=== PATIENT | male | born 1975 | race Two or more races ===

== ENCOUNTER 2025-02-05 07:12 | Inpatient (IN) | payer MEDICAID ==
--- NOTE | 2025-01-30 15:27 | ELECTROCARDIOGRAPH REPORT ---
[facility] Test Date: 2025-01-30 Test Time: 15:26:10 Pat Name: JULIANO MCCOY Department: PRE/OP CARDIOLOGY Patient ID: [id number] Room: Gender: M Branch Office Administrator: LULY : 1975 Requested By: CHARLENE HARTMAN Order Number: [id number] Reading MD: Dr. ISRRAEL Henriquez Measurements Intervals [place] Rate: 74 P: 64 ID: [id number] QRS: -14 QRSD: 99 T: -4 QT: 399 QTc: 443 Interpretive Statements Sinus rhythm Borderline short ID interval Borderline T abnormalities, inferior leads Borderline ST elevation, lateral leads Electronically Signed On 02-01-2025 20:18:[address] ISRRAEL Henriquez Please click the below link to view image of tracing.
[2025-01-30 16:24] LABS: MEAN PLATELET VOLUME 8.4 FL (7.4-10.4); PRE OP HEMATOCRIT 45.7 % (42.0-52.0); PRE OP HEMOGLOBIN 15.0 g/dL (14.0-17.9); PRE OP PLATELET COUNT 308 X10'3 (140-440); PRE OP WHITE BLOOD COUNT 8.7 10'3 (4.8-10.8); RED CELL DISTRIBUTION WIDTH 15.6 % (11.5-14.5)
[2025-01-30 16:34] LABS: CREATININE 1.08 MG/DL (0.60-1.10); PRE OP ALT 28 U/L (30-65); PRE OP ANION GAP 8 (8-16); PRE OP AST 18 U/L (10-37); PRE OP BILIRUB, TOTAL 0.5 MG/DL (0.0-1.0); PRE OP GLUCOSE 94 MG/DL (70-104); PRE OP POTASSIUM 4.1 MMOL/L (3.4-5.1); PRE OP SODIUM 140 MMOL/L (135-145); TOTAL CARBON DIOXIDE 26.0 MMOL/L (24-32); eGFR 72 ML/MIN
[2025-02-05] VITALS (21 sets, daily range): BP systolic 94–148; BP diastolic 61–93; PULSE 72–100; RESP 13–23; TEMP 97.1–98.6; O2SAT 91–99
[~2025-02-05] VITALS: Ht 162.6 cm; Wt 86.6 kg
[~2025-02-05 07:12] MED LIST: BACL20TA7 PO; BUPIVAcaine/PF 2.5mg/ml (0.25%) 10ml vial ONE; CELE-193 PO; METF-1203 PO; OMEP20CA16 PO; PCA WASTE DOCUMENTATION 1 MG ML MC SCH; bisacodyl 10mg suppository rectal RC PRN; magnesium hydroxide 30ml (MOM) UD suspension PO PRN; ondansetron/PF 4mg/2ml inj IV PRN
[2025-02-05] MEDS ORDERED: vancomycin/NS 1 GM ADD-VANTAGE 250 ML IV ONE (07:30)
[2025-02-05] MEDS: VANCOMYCIN/WATER FOR INJ (PEG) 1.5GM/300 ML IVPB IV ONE (07:55)
[2025-02-05] MEDS: ringers solution, lacted 1,000 ML IV SCH ×2 (07:55→11:50)
[2025-02-05] MEDS: ceFAZolin 2gm/dext,iso 50mL 50 ML IV ONE (07:55)
[2025-02-05] MEDS ORDERED: MIDAZolam 1 MG/ML 5ML VIAL ONE ×2 (08:06→10:01)
[2025-02-05] MEDS ORDERED: fentaNYL/PF 50MCG/1 ML 2ML syringe ONE (08:06)
[2025-02-05] MEDS ORDERED: propofol inj 20 ML IV ONE ×2 (11:24)
[2025-02-05] MEDS ORDERED: LIDOcaine 1%/PF 5ML 10 MG/ML VIAL ONE (11:24)
[2025-02-05] MEDS ORDERED: tranexamic acid 100mg/ml inj. ONE (11:32)
[2025-02-05] MEDS ORDERED: albumin (Human) 5% 250ml 250 ML IV ONE ×2 (11:39)
--- NOTE | 2025-02-05 11:49 | ANESTHESIA RECORDS ---
Nerve Block Providers to CC ~ Diagnosis: Nerve Block requested by: CHARLENE HARTMAN MD Neuraxial/Peripheral Nerve Block requested for Post-operative analgesia by Physician above DIAGNOSIS: Post-operative pain. (Body Area) Shoulder: [ ] Arm: [ ] Hand: [ ] Hip: [ ] Knee: [ ] Ankle: [ ] Foot: [ ] Leg: [ Right ] Abdomen: [ ] Other: [ ] Post-operative pain expected to be/is inadequately managed by oral or IV medicines. Regional anesthetic expected to facilitate rehabilitation and/or discharge from facility. Other:[ ] Procedure Performed: Femoral / Saphenous: Right Time out Done?: Yes Time of Time out: 12:05 Procedure Details: PROCEDURE DETAILS: Risks, benefits and alternatives explained Informed consent obtained, and patient wishes to proceed Conscious sedation with indicated monitors Patient positioned, pertinent anatomy defined, sterile technique used Needle used: [ ] 3 1/8 inch Stimuplex Ultra 22ga [x ] 4 inch Stimuplex Ultra 20ga [ ] 6 inch Stimuplex Ultra 20ga [ ] 6 inch, Quikbloc over the needle catheter set 20ga [ ] 4 inch Quikbloc over the needle catheter set 20ga [ ]Other: [ ] Loss of twitch @ [ 0.4 ]mA [x ] Single Injection [ ] Catheter Ultrasound Guidance Used: [x ] Yes [ ] No Attempts:[ once ] Medicines injected: [x ]Clonidine Amt:[ 70 mcgs ] [x ]Dexamethasone Amt:[____3 mgs ] [x ]Ropivacaine Amt:[____0.5% 30 cc ] [ ]Bupivacaine Amt:[ ] [ ]Lidocaine Amt:[ ] [ ]Exparel 1.33%:[ ] [ ]Epinephrine Amt[ ] [ ]Other: [ ] Intermittent aspiration during local anesthetic administration No symptoms of intraneural or intravenous injection Patient tolerated procedure well Comments Right Femoral nerve block. Pt supine. Easy visualization of the Femoral nerve and Femoral vessels with ultrasound probe below the groin. Needle entered from lateral approach. 1% xylocaine local anesthetic. Patellar twitch noted Meaningful conversation t throughout. No Pain or discomfort during injection MARGOTH PATE MD Feb 05, 2025 11:49
[2025-02-05] MEDS ORDERED: meperidine/PF 25mg/ml syringe IV PRN ×3 (11:50)
[2025-02-05] MEDS ORDERED: ondansetron/PF 4mg/2ml inj IV PRN (11:50)
[2025-02-05] MEDS ORDERED: labetalol 20mg/4ml (5mg/ml) syringe IV PRN (11:50)
[2025-02-05] MEDS ORDERED: morphine 4 MG/ML inj SYRINge IV PRN (11:50)
[2025-02-05] MEDS ORDERED: enalaprilat 1.25mg/ml 2ml vial IV PRN (11:50)
[2025-02-05 12:51] LABS: ISTAT ANION GAP 11.0 (8-12); ISTAT BUN 19.0 mg/dL (7-18); ISTAT CL 107.0 mmol/L (99-107); ISTAT CREATININE 0.9 mg/dL (0.8-1.3); ISTAT GLUCOSE 144.0 mg/dL (70-104); ISTAT HGB 10.9 g/dl (14.0-17.9); ISTAT Hct 32.0 %PCV (42-52); ISTAT IONIZED CALCIUM 1.26 mmol/L (1.03-1.32); ISTAT K 4.3 mmol/L (3.5-5.1); ISTAT NA 140.0 mmol/L (135-145); ISTAT TOTAL CO2 22.0 mmol/L (24-32); ISTAT eGFR 89.0 ML/MIN; POC BUN/CREATININE RATIO 21.1 (5.4-32.0)
--- NOTE | 2025-02-05 12:58 | OPERATIVE REPORT ---
Operative Report Operative Report OPERATIVE REPORT [facility] [address] [place] [address] Date of service: February 05, 2025 PREOPERATIVE DIAGNOSIS M17.11-715.16 Unilateral primary osteoarthritis, right knee M21.10-736.89 Varus leg deformity, acquired POSTOPERATIVE DIAGNOSIS M17.11-715.16 Unilateral primary osteoarthritis, right knee M21.10-736.89 Varus leg deformity, acquired Operation Performed 24760 Osteotomy, Femur, Shaft/Supracondylar; w/ Fixation with this modifier: [place] [address] Removal, Implant; Deep (right hip) with this [place]: [place] [address] Removal, Implant; Deep (right knee) with this modifier: RT Procedure: Corrective osteotomy, right distal femur with application of intramedullary nail and lateral plate. Removal of internal fixation hardware right knee. Removal of internal fixation hardware right hip. Surgeon: Dr. Artem Hamilton Thermal Spray Operator: Meagan marlow PA-C Anesthesiologist: Dr. 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 He also has knee arthritis. Corrective osteotomy is necessary to obtain better leg balancing in order to successfully accomplish a knee replacement at a later date. Findings: There was indeed a femoral malunion as described above. The previous intramedullary nail was quite difficult to remove. It had proximal and distal interlocking screws and was a very old system. We were ultimately able to remove without difficulty or complication. Implants: A [employer] Tri Gen nail was utilized with proximal and distal interlocking screws and a six hole 4.5 mm locking straight plate was utilized with five screws. Estimated Blood Loss: 500 mL Complications: None Procedure: The risks, benefits, expected results, and possible complications of the planned procedure had been explained to the patient and informed consent obtained. The patient was taken to the operating room where a spinal anesthetic was administered. The right hip and leg was prepped and draped in the usual sterile fashion with the patient in the supine position on the operating table. a [place] fracture table was utilized. A timeout was taken prior to surgery confirming patient identification, operative side operative site, planned procedure, administration of pre-operative antibiotics, site marking, recognition of allergies, and confirming presence of all necessary implants and instruments. A lateral approach was performed to the distal interlocking screws. The initial screws removed without difficulty however the 2nd one was quite difficult as it was overgrown with bone and the nail had settled and shifted position so that the screw was essentially cold-welded to the anterior of the locking screw hole through the nail. We did ultimately get it out without breakage. It was left partially in the nail once we were able to loosen it. A proximal approach was then made and the proximal locking screws removed without difficulty. The approach through the buttock to the top of the nail was similarly quite difficult and it took quite a bit of time to identify the top of the nail which was buried medial to the greater trochanter. We did ultimately expose it obtained an appropriate screwdriver and removed the locking cap. The nail extraction tool was then applied to the top of the nail and once it was solidly into the nail with threads getting excellent block machine operator, the distal interlocking screw was removed the rest of the way. After this the nail was extracted without difficulty. A lateral approach was made at the level of the old fracture and radiographic imaging utilized to help guide osteotomy cuts. We made one cut perpendicular to the distal segment at the level of the fracture and a 2nd cut perpendicular to the proximal segment at the same level. This set us up for a closing wedge osteotomy to correct the alignment. Once this was accomplished we placed a guide pin for the new nail down the femoral shaft and placed the new nail down to the level of the osteotomy. Measures were taken off of the old nail for diameter and length. The osteotomy was then completed and a new entrance point placed into the distal segment with appropriate direction of the nail into the distal metaphysis. The distal segment was translated medially and aligned properly and then the nail driven into the distal segment. Single distal interlocking and proximal interlocking screws were applied and the nail insertion device removed. A short five hole straight plate was placed laterally after contouring the bone by removing the excess callus. This was applied to help with rotational alignment and ensure that we did not have repeat varus or valgus deformity at the fracture. Portions of the bone wedge were crushed with a rongeur and packed in around the osteotomy as bone graft. The wounds were irrigated thoroughly with normal saline and then closed in layers with 1 Stratafix suture for deep tissue, 0. Stratafix suture for healy bcutaneous tissue, and 4-0 strata fix for skin. Sterile dressings were applied, and the patient was returned to the recovery room in satisfactory condition. Electronically Signed by: Artem Hamilton MD Doctor, Orthopedic Surgery Signed on: 02/05/2025 12:57 PM ARTEM HAMILTON MD Feb 05, 2025 12:58
[2025-02-05 13:26] LABS: MEAN PLATELET VOLUME 8.3 FL (7.4-10.4); RED CELL DISTRIBUTION WIDTH 15.2 % (11.5-14.5)
--- NOTE | 2025-02-05 13:26 | RADIOLOGY REPORT ---
CLINICAL INDICATION: post-op TECHNIQUE: 2 DI KNEE LIMITED (AP/LAT) Comparison: None FINDINGS/IMPRESSION: : There is intramedullary medullary wilfredo and screw fixation of distal femur fracture. Small volume gas of the right hip and distal thigh.
[2025-02-05] MEDS: potassium cl 20mEq in 1/2 NS 1,000 ML IV SCH (15:00)
[2025-02-05] MEDS: ceFAZolin/D5W- 1GM premix 50 ML IV SCH (15:38)
[2025-02-05] MEDS: vancomycin/NS 1 GM ADD-VANTAGE 250 ML IV SCH (16:49)
[2025-02-06 02:00] VITALS: BP 112/70; PULSE 80; RESP 16; TEMP 97.8; O2SAT 97
[2025-02-06] MEDS: oxyCODONE IR 5mg (immed. release) tablet PO PRN (04:37)
[2025-02-06 06:00] VITALS: BP 114/68; PULSE 79; RESP 18; TEMP 98; O2SAT 96
[2025-02-06 06:44] LABS: MEAN PLATELET VOLUME 8.6 FL (7.4-10.4); RED CELL DISTRIBUTION WIDTH 14.8 % (11.5-14.5)
[2025-02-06 07:00] LABS: TOTAL CARBON DIOXIDE 25.0 MMOL/L (24-32)
--- NOTE | 2025-02-06 08:06 | DISCHARGE SUMMARY ---
Discharge Summary Ortho [facility] ~ Discharge Summary *Problems/Diagnosis: (1) Varus deformity of knee Status: Chronic Admission Diagnosis: s/p Right Femoral Realignment Osteotomy Discharge Diagnosis\Comment: see above Operations\Procedures see above Consultants: none Complications: none Condition on DC: Stable Discharge Summary: s/p femoral realignment osteotomy, right. On the date of admission patient underwent surgery at [facility] without complications. Overnight admission was uneventful. Plan to discharge home today so long as patient clears physical therapy. Follow up as scheduled in 2 weeks at [facility]. Total Time Spent on D/C: Up to 30 Minutes Medications Home Meds: Home Medications Active Reported Celebrex* (Celecoxib) 100 Mg Capsule 200 Mg PO BID Baclofen 20 Mg Tablet 1 Tab PO BID 30 Days Omeprazole 20 Mg Capsule.dr 1 Cap PO DAILY 30 Days Metformin HCl 500 Mg Tablet 1 Tab PO BID 30 Days Supervising Physician Supervising Physician: Dr. Artem Hamilton Problem Qualifiers (1) Varus deformity of knee: Qualified Codes: M21.161 - Varus deformity, not elsewhere classified, right knee RONNY BOWEN PAC Feb 06, 2025 08:06
[2025-02-06] MEDS: pantoprazole 40mg Tablet.DR PO SCH (09:28)
== END 2025-02-06 11:24 | disposition home or self-care (01) | DRG 308 ==
LOC: PAS IN 07:12 → ORTHO 4S 13:42
PROVIDERS: ADMIT Orthopaedic Surgery; ATTEND Orthopaedic Surgery
PROC: 0QP804Z Removal of Internal Fixation Device from Right Femoral Shaft, Open Approach (ICD-10-PCS; 2025-02-05)
PROC: 3E0T33Z Introduction of Anti-inflammatory into Peripheral Nerves and Plexi, Percutaneous Approach (ICD-10-PCS; 2025-02-05)
PROC: 3E0T3BZ Introduction of Anesthetic Agent into Peripheral Nerves and Plexi, Percutaneous Approach (ICD-10-PCS; 2025-02-05)
PROC: 0QH804Z Insertion of Internal Fixation Device into Right Femoral Shaft, Open Approach (ICD-10-PCS; principal; 2025-02-05 08:05)
DX: S72.391A Other fracture of shaft of right femur, initial encounter for closed fracture (principal); M17.11 Unilateral primary osteoarthritis, right knee; M21.161 Varus deformity, not elsewhere classified, right knee; X58.XXXA Exposure to other specified factors, initial encounter; Y93.89 Activity, other specified; Y92.89 Other specified places as the place of occurrence of the external cause; Y99.8 Other external cause status
CPT/HCPCS: 36415; 73552; 73560; 76000; 80047; 80051; 80053; 82948; 85025; 87081; 93005; 97110; 97116; 97161; A4215; A4618; A6258; A6449; A7000; C1713; G0378; J0690; J2250; J2704; J2710; J3010; J3373; J3375; J3480; J3490; J7030; J7120; P9045